=== PATIENT | male | born 1960 ===

== ENCOUNTER 2022-03-19 03:10 | Emergency (ER) | payer OTHER ==
[2022-03-19] MEDS ORDERED: FAMOTIDINE 20 MG/2 ML INJ IV ONE (03:22)
[2022-03-19] MEDS ORDERED: diphenhydrAMINE 50 MG/ML VIAL IV ONE (03:22)
--- NOTE | 2022-03-19 03:26 | Emergency Department Report ---
ED Allergic Reaction HPI - General Stated complaint: ALLERGIC REACTION Time Seen by Provider: 03/19/22 03:22 Source: patient, EMS - History of Present Illness Initial Comments: Patient is 61 years old male with history of hypertension on lisinopril and amlodipine. Patient brought to the emergency room via EMS from home for eval uation of allergic reaction. Patient stated that he felt like his throat is closing. Patient stated that he was out and when he came back this started happening. Patient denied any tongue swelling or lip swelling. Patient stated that he has been taking lisinopril for more than 10 years. MD Complaint: allergic reaction -: Sudden Symptoms: difficulty swallowing, difficulty breathing Treatment Prior to Arrival: benadryl, steroids Previous Allergy History: none - Related Data Previous Rx's Medication Instructions Recorded Last Taken Type Famotidine [Pepcid] 40 mg PO QHS #5 tablet 03/19/22 Unknown Rx Prednisone [predniSONE 10 mg 10 mg PO .TAPER #1 tab.ds.pk 03/19/22 Unknown Rx (6-Day Pack, 21 Tabs)] diphenhydrAMINE [Benadryl CAP] 25 mg PO Q8HR PRN #20 capsule 03/19/22 Unknown Rx Allergies Allergy/AdvReac Type Severity Reaction Status Date / Time No Known Allergies Allergy Verified 03/19/22 03:34 ED Review of Systems ROS: Stated complaint: ALLERGIC REACTION Other details as noted in HPI Comment: All other systems reviewed and negative Constitutional: denies: chills, fever Respiratory: shortness of breath. denies: cough, SOB with exertion, SOB at rest Cardiovascular: denies: chest pain, palpitations, dyspnea on exertion Gastrointestinal: denies: abdominal pain, nausea, vomiting Musculoskeletal: denies: back pain Neurological: denies: headache, weakness, numbness, paresthesias ED Past Medical Hx - Medications Home Medications: Home Medications Medication Instructions Recorded Confirmed Last Taken Type Famotidine [Pepcid] 40 mg PO QHS #5 tablet 03/19/22 Unknown Rx Prednisone [predniSONE 10 mg 10 mg PO .TAPER #1 tab.ds.pk 03/19/22 Unknown Rx (6-Day Pack, 21 Tabs)] diphenhydrAMINE [Benadryl CAP] 25 mg PO Q8HR PRN #20 capsule 03/19/22 Unknown Rx ED Physical Exam - General General appearance: alert, in no apparent distress - Head Head exam: Present: atraumatic, normocephalic, normal inspection - Eye Eye exam: Present: normal appearance, PERRL - ENT ENT exam: Present: normal exam, normal orophraynx, mucous membranes moist - Neck Neck exam: Present: normal inspection, full ROM. Absent: tenderness, meningismus - Respiratory Respiratory exam: Present: normal lung sounds bilaterally. Absent: respiratory distress, wheezes, rales, rhonchi, accessory muscle use, decreased breath sounds, prolonged expiratory - Cardiovascular Cardiovascular Exam: Present: regular rate, normal rhythm, normal heart sounds - GI/Abdominal GI/Abdominal exam: Present: soft, normal bowel sounds. Absent: distended, tenderness, guarding, rebound, rigid, organomegaly, mass, bruit, pulsatile mass, hernia - Extremities Exam Extremities exam: Present: normal inspection, full ROM, normal capillary refill. Absent: tenderness, pedal edema, joint swelling, calf tenderness - Back Exam Back exam: Present: normal inspection, full ROM. Absent: CVA tenderness (R), CVA tenderness (L) - Neurological Exam Neurological exam: Present: alert, oriented X3, CN II-XII intact, normal gait, reflexes normal. Absent: motor sensory deficit - Psychiatric Psychiatric exam: Present: normal mood - Skin Skin exam: Present: warm, intact, normal color ED Course Vital Signs 03/19/22 03/19/22 03/19/22 03:18 03:24 03:30 Temperature 98 F Pulse Rate 112 H 110 H 107 H Respiratory 16 22 17 Rate Blood Pressure 151/106 141/96 Blood Pressure [Left] O2 Sat by Pulse 98 90 91 Oximetry 03/19/22 03/19/22 03/19/22 03:46 04:00 04:16 Temperature Pulse Rate 110 H 101 H 102 H Respiratory 21 14 13 Rate Blood Pressure 141/96 138/94 138/94 Blood Pressure [Left] O2 Sat by Pulse 97 94 96 Oximetry 03/19/22 03/19/22 03/19/22 04:30 04:54 05:00 Temperature Pulse Rate 98 H 102 H 112 H Respiratory 16 39 H 18 Rate Blood Pressure 136/93 Blood Pressure [Left] O2 Sat by Pulse 96 98 97 Oximetry 03/19/22 03/19/22 03/19/22 05:16 05:30 05:45 Temperature Pulse Rate 101 H 101 H Respiratory 12 14 Rate Blood Pressure Blood Pressure [Left] O2 Sat by Pulse 97 98 98 Oximetry 03/19/22 03/19/22 03/19/22 05:46 06:00 06:16 Temperature Pulse Rate 100 H 101 H 96 H Respiratory 14 17 18 Rate Blood Pressure 131/87 131/87 Blood Pressure [Left] O2 Sat by Pulse 98 96 96 Oximetry 03/19/22 03/19/22 03/19/22 06:30 06:46 07:00 Temperature Pulse Rate 97 H 95 H 100 H Respiratory 18 16 16 Rate Blood Pressure 116/86 116/86 120/78 Blood Pressure [Left] O2 Sat by Pulse 96 95 95 Oximetry 03/19/22 03/19/22 03/19/22 07:16 07:32 07:46 Temperature Pulse Rate 103 H Respiratory 16 17 18 Rate Blood Pressure 120/78 133/93 133/93 Blood Pressure [Left] O2 Sat by Pulse 96 92 97 Oximetry 03/19/22 03/19/22 03/19/22 08:00 08:16 08:30 Temperature Pulse Rate Respiratory 15 15 19 Rate Blood Pressure 133/79 133/79 123/84 Blood Pressure [Left] O2 Sat by Pulse 96 97 97 Oximetry 03/19/22 03/19/22 03/19/22 08:46 09:00 09:08 Temperature 98.3 F Pulse Rate 88 Respiratory 18 17 19 Rate Blood Pressure 123/84 120/79 Blood Pressure 120/79 [Left] O2 Sat by Pulse 97 96 96 Oximetry 03/19/22 03/19/22 03/19/22 09:12 11:19 11:20 Temperature 97.2 F L 97.8 F Pulse Rate 88 92 H Respiratory 19 Rate Blood Pressure 120/79 Blood Pressure 115/75 [Left] O2 Sat by Pulse 95 95 97 Oximetry ED Medical Decision Making - Lab Data Result diagrams: 03/19/22 03:33 03/19/22 03:33 - Radiology Data Radiology results: report reviewed - Medical Decision Making Patient is 61 years old male with history of hypertension on lisinopril and amlodipine. Patient brought to the emergency room via EMS from home for evaluation of allergic reaction. Patient stated that he felt like his throat is closing. Patient stated that he was out and when he came back this started happening. Patient denied any tongue swelling or lip swelling. Patient stated that he has been taking lisinopril for more than 10 years. Patient received Benadryl and Pepcid. Labs reviewed and is unremarkable except for elevated glucose 315. CT neck with IV contrast showed no acute abnormality no airway compromise. Patient advised to discontinue lisinopril and follow-up with his primary care physician for replacement. Patient advised to return to the ER if he develop any new symptoms. Critical care attestation.: If time is entered above; I have spent that time in minutes in the direct care of this critically ill patient, excluding procedure time. ED Disposition Clinical Impression: Acute allergic reaction Disposition: HOME / SELF CARE / HOMELESS Is pt being admited?: No Condition: Stable Instructions: Allergies, Adult Prescriptions: Famotidine [Pepcid] 40 mg PO QHS #5 tablet diphenhydrAMINE [Benadryl CAP] 25 mg PO Q8HR PRN #20 capsule PRN Reason: Itching Prednisone [predniSONE 10 mg (6-Day Pack, 21 Tabs)] 10 mg PO .TAPER #1 tab.ds.pk Referrals: MARGARITO AUGUSTIN MD [Primary Care Provider] - 3-5 Days
[2022-03-19] MEDS ORDERED: ONDANSETRON 4 MG/2 ML INJ IV ONE (03:35)
[2022-03-19 04:01] LABS: BUN/Creatinine Ratio 12; Blood Urea Nitrogen 14 mg/dL (9-20); Calcium 9.7 mg/dL (8.4-10.2); Hemolysis Index 13
[2022-03-19 04:19] LABS: Eosinophils # (Auto) 0.1 K/mm3 (0.0-0.4); Eosinophils % (Auto) 1.6 % (0.0-4.3); Hematocrit 50.2 % (35.5-45.6); Hemoglobin 16.1 gm/dl (11.8-15.2); Lymphocytes # (Auto) 3.2 K/mm3 (1.2-5.4); Lymphocytes % (Auto) 41.3 % (13.4-35.0); Mean Corpuscular HGB Conc 32 % (32-34); Mean Corpuscular Volume 79 fl (84-94); Monocytes # (Auto) 0.4 K/mm3 (0.0-0.8); Monocytes % (Auto) 4.7 % (0.0-7.3); Platelet Count 196 K/mm3 (140-440); Red Blood Count 6.34 M/mm3 (3.65-5.03); Red Cell Distribution Width 15.2 % (13.2-15.2)
--- NOTE | 2022-03-19 04:21 | XRay Report ---
CHEST 1 VIEW 03/19/2022 3:04 AM INDICATION / CLINICAL INFORMATION: SOB. COMPARISON: None available. FINDINGS: SUPPORT DEVICES: None. HEART / MEDIASTINUM: No significant abnormality. LUNGS / PLEURA: No significant pulmonary abnormality. No significant pleural effusion. No pneumothora x. ADDITIONAL FINDINGS: No significant additional findings. IMPRESSION: 1. No acute abnormality of the chest. Signer Name: Irving Perrin MD Signed: 03/19/2022 4:16 AM Workstation Name: [id number]
--- NOTE | 2022-03-19 05:12 | Cat Scan Report ---
CT NECK WITH CONTRAST HISTORY: difficulty swallowing COMPARISON: No relevant prior imaging study available. TECHNIQUE: CT of the neck was performed. All CT scans at this location are performed using CT dose re duction for ALARA by means of automated exposure control. FINDINGS: Skull Base: No significant abnormality. Nasopharynx, oropharynx, hypopharynx: No significant abnormality. No mass identified.. Tonsils: Tonsils appear within normal limits. Airway: Patent and without significant abnormality. Salivary glands: No significant abnormality. Thyroid:No significant abnormality. Lymphatics: No lymphadenopathy. Vasculature: No significant abnormality. Osseous Structures: No acute findings. There is moderate spondylosis with anterior and posterior oste ophytes as well as other areas of ossification along the central canal resulting in moderate central canal stenosis at C2-C3 and C3-C4. Additional findings: None. IMPRESSION: 1. No acute findings to explain the patient's difficulty swallowing. 2. Additional findings as above. Signer Name: Irving Perrin MD Signed: 03/19/2022 5:08 AM Workstation Name: [id number]
[2022-03-19] MEDS ORDERED: INSULIN REGULAR, HUMAN 100 UNITS/1 ML IV ONE (05:35)
[2022-03-19 11:22] VITALS: BP 115/75
== END 2022-03-19 10:00 | disposition home or self-care (01) ==
LOC: ED 03:10
DX: T78.49XA Other allergy, initial encounter (principal); X58.XXXA Exposure to other specified factors, initial encounter
CPT/HCPCS: 36415; 70491; 71045; 80048; 83690; 85025; 96374; 96375; 99285; J1200; J2405; J3490; Q9967; 96365; J1815